=== PATIENT | male | born 1970 | race Caucasian/White ===

== ENCOUNTER 2016-08-06 19:12 | Inpatient (IN) | payer OTHER ==
[~2016-08-06] VITALS: Ht 175.3 cm; Wt 99.6 kg
[~2016-08-06 19:12] MED LIST: MOTION SICKNESS25 M4 PO; MOTRIN IB200 MG PO; PANTOPRAZOLE SO40 MG PO
[2016-08-06] MEDS ORDERED: LO-DOSE ASPIRIN81 M2 PO (19:47)
[2016-08-06 20:19] LABS: HEMATOCRIT 47.1 % (38.0-50.0); MCHC 33.3 G/DL (30.0-36.0); MCV 87.1 FL (86-99); PLATELET COUNT 237 K/uL (156-360); RBC DIS.WIDTH-CV 13.7 % (11.8-14.6); RBC DIS.WIDTH-SD 43.8 % (39-53); RED BLOOD COUNT 5.41 M/uL (4.00-5.50); WHITE BLOOD COUNT 9.7 K/uL (4.1-10.2)
[2016-08-06 20:32] LABS: CHLORIDE 106 mEq/L (99-109); POTASSIUM 4.6 mEq/L (3.7-5.4); SODIUM 138 mEq/L (136-147)
[2016-08-06 20:35] LABS: GLUCOSE 110 mg/dL (70-99)
[2016-08-06 20:36] LABS: ANION GAP 11 MEQ/L (2-14)
[2016-08-06 20:37] LABS: TOTAL BILIRUBIN 0.5 mg/dL (0.0-1.0)
[2016-08-06 20:38] LABS: ALKALINE PHOSPHATASE 63 IU/L (3-129)
[2016-08-06 20:39] LABS: GFR ESTIMATE (CALCULATED) > 59 mL/min/
[2016-08-06 20:40] LABS: DIRECT BILIRUBIN 0.1 mg/dL (0.0-0.3); UREA NITROGEN (BUN) 21 mg/dL (9-23)
[2016-08-06 20:42] LABS: LIPASE 231 U/L (1.0-51.0)
[2016-08-06 21:13] LABS: INFLUENZA A VIRAL ANTIGEN NEGATIVE
[2016-08-06 21:14] LABS: INFLUENZA B VIRAL ANTIGEN NEGATIVE
[2016-08-07 02:35] VITALS: BP 120/71
[2016-08-07 06:38] LABS: EOSINOPHIL (%) 1.2 % (0-5); EOSINOPHIL COUNT 0.1 K/uL (0-0.3); HEMATOCRIT 41.5 % (38.0-50.0); IMMATURE GRANULOCYTE (%) 0.4 % (0.0-0.7); INSTRUMENT ABS NEUTROPHIL CT 5.9 K/uL; LYMPHOCYTE COUNT 0.7 K/uL (1.0-2.8); MCHC 32.8 G/DL (30.0-36.0); MCV 88.5 FL (86-99); MEAN PLAT.VOLUME 9.9 uM^3 (9.0-12.4); MONOCYTE (%) 8.9 % (3-12); MONOCYTE COUNT 0.7 K/uL (0-0.8); NEUTROPHIL (%) 80.5 % (45-76); NEUTROPHIL COUNT 5.9 K/uL (1.8-6.4); PLATELET COUNT 204 K/uL (156-360); RBC DIS.WIDTH-CV 14.1 % (11.8-14.6); RBC DIS.WIDTH-SD 45.4 % (39-53); RED BLOOD COUNT 4.69 M/uL (4.00-5.50); WHITE BLOOD COUNT 7.3 K/uL (4.1-10.2)
[2016-08-07 06:40] LABS: ALKALINE PHOSPHATASE 52 IU/L (3-129); ANION GAP 6 MEQ/L (2-14); CHLORIDE 107 MEQ/L (99-109); GFR ESTIMATE (CALCULATED) > 59 mL/min/; GLUCOSE 113 mg/dL (70-99); LIPASE 26 U/L (1.0-51.0); SAMPLE HEMOLYSIS CHECK 0; SAMPLE ICTERIC CHECK 0; SAMPLE LIPEMIA CHECK 0; SODIUM 138 MEQ/L (136-147); TOTAL BILIRUBIN 0.5 MG/DL (0.0-1.0); UREA NITROGEN (BUN) 17 mg/dL (9-23)
[2016-08-07 07:45] VITALS: BP 119/60
[2016-08-07 15:12] VITALS: BP 117/69
[2016-08-07 23:19] VITALS: BP 132/62
[2016-08-08 08:41] VITALS: BP 124/67
[2016-08-08 10:05] VITALS: BP 124/67
[2016-08-08] MEDS ORDERED: TOPAMAX25 MG PO (12:55)
[2016-08-08] MEDS ORDERED: FIORICET,ESG1 TABLET PO (12:56)
== END 2016-08-08 13:51 | disposition home or self-care (01) | DRG 103 ==
LOC: RME 19:12 → EME 19:12 → EDOF 08-07 00:55 → 5EAST 08-07 00:55
PROVIDERS: Hospitalist; Physician Assistant Medical
DX: R51 Headache (principal); R42 Dizziness and giddiness; F17.210 Nicotine dependence, cigarettes, uncomplicated; K21.9 Gastro-esophageal reflux disease without esophagitis; Z86.73 Personal history of transient ischemic attack (TIA), and cerebral infarction without residual deficits
CPT/HCPCS: 70496; 70498; 74176; 76705; 80048; 80053; 80076; 83690; 85025; 85027; 87502; 93005; 99281; 99285; C9113; J1170; J1200; J1644; J2270; J2765; J7030; J7120

== ENCOUNTER 2017-08-31 21:25 | Emergency (ER) | payer SELFPAY ==
[~2017-08-31] VITALS: Ht 175.3 cm; Wt 96.9 kg
[~2017-08-31 21:25] MED LIST changes: +FIORICET,ESG1 TABLET PO; +LO-DOSE ASPIRIN81 M2 PO; +TOPAMAX25 MG PO
[2017-08-31 22:26] LABS: APPEARANCE CLEAR ((CLEAR)); BILIRUBIN NEGATIVE; BLOOD NEGATIVE; COLOR STRAW ((YELLOW)); GLUCOSE (STRIP) >=500; KETONES NEGATIVE; LEUKOCYTES NEGATIVE; NITRITE NEGATIVE; PROTEIN (STRIP) NEGATIVE; SPECIFIC GRAVITY 1.008 (1.000-1.030); UCUL ADDED? NO; UROBILINOGEN 0.2 MG/DL (0.2-1.0)
[2017-08-31 22:41] LABS: HEMOGLOBIN 14.2 G/DL (12.5-16.6); MCH 30.7 PG (29.0-34.0); MCHC 34.6 G/DL (30.0-36.0); MCV 88.7 FL (86-99); PLATELET COUNT 231 K/uL (156-360); RBC DIS.WIDTH-CV 13.7 % (11.8-14.6); RBC DIS.WIDTH-SD 44.4 % (39-53); RED BLOOD COUNT 4.62 M/uL (4.00-5.50); WHITE BLOOD COUNT 7.9 K/uL (4.1-10.2)
[2017-08-31 22:47] LABS: ALBUMIN 4.2 g/dL (3.2-4.8); CHLORIDE 105 mEq/L (99-109); POTASSIUM 3.5 mEq/L (3.7-5.4); SODIUM 140 mEq/L (136-147)
[2017-08-31 22:49] LABS: GLUCOSE 178 mg/dL (70-99); TOTAL PROTEIN 6.3 g/dL (6.4-8.3)
[2017-08-31 22:51] LABS: TOTAL BILIRUBIN 0.3 mg/dL (0.0-1.0)
[2017-08-31 22:53] LABS: ALKALINE PHOSPHATASE 64 IU/L (3-129); CREATININE 0.9 mg/dL (0.6-1.3); GFR ESTIMATE (CALCULATED) > 59 mL/min/ (58.99-99999)
[2017-08-31 22:54] LABS: UREA NITROGEN (BUN) 14 mg/dL (9-23)
[2017-08-31 22:55] LABS: AST (GOT) 15 IU/L (2-34)
[2017-08-31 22:56] LABS: ALT (GPT) 22 IU/L (3-49)
[2017-08-31 23:00] LABS: TROP-I INTERPRETATION NEGATIVE; TROPONIN-I < 0.01 ng/mL (0.0-0.30)
[2017-08-31] MEDS ORDERED: MECLIZINE HCL25 MG PO (23:44)
[2017-09-01 00:23] VITALS: BP 134/84
== END 2017-09-01 00:24 | disposition home or self-care (01) ==
LOC: EME 21:25
PROVIDERS: Physician Assistant
DX: R51 Headache (principal); R42 Dizziness and giddiness; K21.9 Gastro-esophageal reflux disease without esophagitis; F17.200 Nicotine dependence, unspecified, uncomplicated; Z86.73 Personal history of transient ischemic attack (TIA), and cerebral infarction without residual deficits; Z79.82 Long term (current) use of aspirin
CPT/HCPCS: 70450; 80053; 81003; 84484; 85027; 93005; 99281; 99285; J0780; J1200; J7030

== ENCOUNTER 2017-09-08 01:14 | Emergency (ER) | payer SELFPAY ==
[~2017-09-08] VITALS: Ht 175.3 cm; Wt 96.0 kg
[~2017-09-08 01:14] MED LIST changes: +MECLIZINE HCL25 MG PO
[2017-09-08 01:39] LABS: HEMATOCRIT 41.6 % (38.0-50.0); HEMOGLOBIN 14.2 G/DL (12.5-16.6); MCH 30.5 PG (29.0-34.0); MCHC 34.1 G/DL (30.0-36.0); MCV 89.5 FL (86-99); PLATELET COUNT 165 K/uL (156-360); RBC DIS.WIDTH-CV 13.7 % (11.8-14.6); RBC DIS.WIDTH-SD 44.9 % (39-53); RED BLOOD COUNT 4.65 M/uL (4.00-5.50); WHITE BLOOD COUNT 4.7 K/uL (4.1-10.2)
[2017-09-08 01:48] LABS: CHLORIDE 102 mEq/L (99-109); POTASSIUM 4.2 mEq/L (3.7-5.4); SODIUM 136 mEq/L (136-147)
[2017-09-08 01:50] LABS: GLUCOSE 111 mg/dL (70-99)
[2017-09-08 01:54] LABS: CREATININE 0.9 mg/dL (0.6-1.3); GFR ESTIMATE (CALCULATED) > 59 mL/min/ (58.99-99999)
[2017-09-08 01:55] LABS: UREA NITROGEN (BUN) 12 mg/dL (9-23)
[2017-09-08] MEDS ORDERED: ULTRAM50 MG PO (04:01)
[2017-09-08] MEDS ORDERED: PREDNISONE50 MG PO (04:01)
[2017-09-08] MEDS ORDERED: TESSALON PERLE100 MG PO (04:02)
[2017-09-08 04:47] VITALS: BP 121/72
== END 2017-09-08 04:48 | disposition home or self-care (01) ==
LOC: EME 01:14
DX: J44.9 Chronic obstructive pulmonary disease, unspecified (principal); M94.0 Chondrocostal junction syndrome [Tietze]; K21.9 Gastro-esophageal reflux disease without esophagitis; Z86.73 Personal history of transient ischemic attack (TIA), and cerebral infarction without residual deficits; F17.200 Nicotine dependence, unspecified, uncomplicated; Z79.82 Long term (current) use of aspirin
CPT/HCPCS: 71046; 80048; 85027; 94640; J1885; J7512